=== PATIENT | female | born 1965 | race Asian ===

== ENCOUNTER 2016-10-06 10:57 | Outpatient (CLI) | payer BC ==
--- NOTE | 2016-10-07 18:43 | XRAY Report ---
CHEST, PA AND LATERAL: 10/06/2016 CLINICAL HISTORY: Patient has a cough. FINDINGS: Bony thorax demonstrates minimal anterior spurring in the thoracic spine. Normal cardiac size is seen. Mediastinum appears normal. Pulmonary parenchyma is normal. IMPRESSION: NORMAL CHEST. JOB #: [id number] EXT JOB #:[id number]
== END 2016-10-06 10:58 | disposition home or self-care (01) ==
LOC: DI.S 10:57
PROVIDERS: ATTEND Nurse Practitioner Family
DX: R05 Cough (principal)
CPT/HCPCS: 71020

== ENCOUNTER 2018-12-12 07:53 | Outpatient (CLI) | payer BC ==
[2018-12-12 11:44] LABS: EOSINOPHILS # (AUTO) 0.1 10^3/uL (0.0-0.7); EOSINOPHILS % (AUTO) 3.4 %; HGB - HEMOGLOBIN 13.4 g/dL (12.0-16.0); LYMPHOCYTES # (AUTO) 1.6 10^3/uL (1.5-3.5); LYMPHOCYTES % (AUTO) 38.1 %; MEAN CORPUSCULAR HEMOGLOBIN 33.8 pg (27.0-31.0); MEAN CORPUSCULAR HGB CONC 34.4 g/dL (32.0-36.0); MEAN CORPUSCULAR VOLUME 98.2 fL (81.0-99.0); MEAN PLATELET VOLUME 11.2 fL (7.9-10.8); MONOCYTES # (AUTO) 0.4 10^3/uL (0.0-1.0); MONOCYTES % (AUTO) 9.3 %; PLT - PLATELET COUNT 222 10^3/uL (130-450); RED BLOOD COUNT 3.97 10^6/uL (4.20-5.40); RED CELL DISTRIBUTION WIDTH 12.6 % (12.0-15.0); WHITE BLOOD COUNT 4.1 x10^3/uL (4.8-10.8)
[2018-12-12 12:01] LABS: ALBUMIN 4.2 g/dL (3.2-5.5); ALBUMIN/GLOBULIN RATIO 1.3 (1.0-2.2); ALKALINE PHOSPHATASE 44 IU/L (42-121); ALT ALANINE AMINOTRANSFERASE 22 IU/L (10-60); AST ASPARTATE AMINOTRANSFERASE 27 IU/L (10-42); BILIRUBIN,TOTAL 0.8 mg/dL (0.2-1.0); BUN - BLOOD UREA NITROGEN 12 mg/dL (6-20); CALCIUM 9.8 mg/dL (8.5-10.3); CARBON DIOXIDE - CO2 31 mmol/L (21-32); CHLORIDE 103 mmol/L (101-111); CHOL/HDL RATIO 2.7 (<4.4); CHOLESTEROL 234 mg/dL; CREATININE 0.7 mg/dL (0.4-1.0); GFR - MDRD 88 (>89); GLUCOSE 100 mg/dL (70-100); HDL CHOLESTEROL 87 mg/dL; LDL CHOLESTEROL,CALCULATED 131 mg/dL; LDL/HDL RATIO 1.5 (<4.4); SODIUM 141 mmol/L (135-145); TOTAL PROTEIN 7.4 g/dL (6.7-8.2); VLDL CHOLESTEROL 16 mg/dL
== END 2018-12-12 07:54 | disposition home or self-care (01) ==
LOC: LAB.S 07:53
PROVIDERS: ATTEND Nurse Practitioner Family
DX: Z00.00 Encounter for general adult medical examination without abnormal findings (principal); E55.9 Vitamin D deficiency, unspecified; E78.5 Hyperlipidemia, unspecified
CPT/HCPCS: 36415; 80053; 80061; 82306; 83721; 85025

== ENCOUNTER 2021-04-08 08:21 | Outpatient (CLI) | payer BC, OTHER ==
--- NOTE | 2021-04-08 09:32 | DEXA Report ---
PROCEDURE: Dexa Spine and/or Hip INDICATIONS: LEFT BREAST DUCTAL CARCINOMA TECHNIQUE: Dual energy x-ray absorptiometry (DXA) was performed on a [employer] System. Regions measur ed are the AP Spine, femoral neck, and if needed forearm. COMPARISON: None. FINDINGS: Lumbar Spine: Bone Mineral Density 0.947 g/cm/cm,T score -1.9, osteopenia Left Femoral Neck: Bone Mineral Density 0.802 g/cm/cm, T score -1.7, osteopenia Total: Bone Mineral Density 0.737 g/cm/cm, T score -2.1, osteopenia (T score greater or equal to -1.0: NORMAL) (T score from -1.1 to -2.4: OSTEOPENIA) (T score less than or equal to -2.5 to: OSTEOPOROSIS) Impression: Bone mineral density as detailed above. Patients with diagnosis of osteoporosis or osteopenia should have regular bone mineral density assess ment. For those eligible for Medicare, routine testing is allowed once every 2 years. Testing frequ ency can be increased for patients who have rapidly progressing disease or for those who are receivin g medical therapy to restore bone mass. Reviewed by: Silvestre Martinez MD on 04/08/2021 9:30 AM [facility] Approved by: Silvestre Martinez MD on 04/08/2021 9:30 AM PST Station ID: [id number]
== END 2021-04-08 08:22 | disposition home or self-care (01) ==
LOC: DI 08:21
PROVIDERS: ATTEND Internal Medicine
DX: Z13.820 Encounter for screening for osteoporosis (principal); M85.89 Other specified disorders of bone density and structure, multiple sites; D05.12 Intraductal carcinoma in situ of left breast

== ENCOUNTER 2023-02-17 14:15 | Outpatient (CLI) | payer OTHER ==
[2023-02-17 20:27] LABS: THYROID STIMULATING HORMONE 1.13 uIU/mL (0.34-5.60)
[2023-02-19 07:09] LABS: VITAMIN D 25-HYDROXY 73.5 ng/mL (30.0-100.0)
== END 2023-02-17 14:16 | disposition home or self-care (01) ==
LOC: LAB.S 14:15
PROVIDERS: ATTEND Naturopath
DX: M85.80 Other specified disorders of bone density and structure, unspecified site (principal); L65.9 Nonscarring hair loss, unspecified; R68.82 Decreased libido
CPT/HCPCS: 36415; 82306; 82627; 84439; 84443; 84481

== ENCOUNTER 2023-12-05 12:50 | Outpatient (CLI) | payer OTHER ==
--- NOTE | 2023-12-05 15:40 | DEXA Report ---
PROCEDURE: Dexa Spine and/or Hip INDICATIONS: OSTEOPENIA TECHNIQUE: Dual energy x-ray absorptiometry (DXA) was performed on a [employer] System. Regions measur ed are the AP Spine, femoral neck, and if needed forearm. COMPARISON: 04/08/2021 FINDINGS: Lumbar Spine: Bone Mineral Density: 0.924 g/cm/cm,T score: -2.1. Since the most recent prior study, there has been a statistically significant decrease in bone mineral density by 2.4 percent. Left Femoral Neck: Bone Mineral Density: 0.802 g/cm/cm, T score: -1.7. Left Hip: Bone Mineral Density: 0.710 g/cm/cm,T score: -2.4. Since the most recent prior study, there has been a statistically significant decrease in bone mineral density by 3.7 percent. FRAX risk factors: 10 year risk of major osteoporotic fracture: 3.8% major osteoporotic fracture = hip, clinical vertebral, proximal humerus, distal forearm 10 year risk of hip fracture: 0.4% (T score greater or equal to -1.0: NORMAL) (T score from -1.1 to -2.4: OSTEOPENIA) (T score less than or equal to -2.5 to: OSTEOPOROSIS) Impression: By WHO criteria, this patient has low bone density (osteopenia). Interval statistical decrease in bone mineral density of the lumbar spine. Interval statistical decre ase in bone mineral density of the hip. Patients with diagnosis of osteoporosis or osteopenia should have regular bone mineral density assess ment. For those eligible for Medicare, routine testing is allowed once every 2 years. Testing frequ ency can be increased for patients who have rapidly progressing disease or for those who are receivin g medical therapy to restore bone mass. Reviewed by: Calvin Hicks MD on 12/05/2023 3:39 PM PDT Approved by: Calvin Hicks MD on 12/05/2023 3:39 PM PDT Station ID: [id number]
== END 2023-12-05 12:51 | disposition home or self-care (01) ==
LOC: DI 12:50
PROVIDERS: ATTEND Naturopath
DX: M85.89 Other specified disorders of bone density and structure, multiple sites (principal)